=== PATIENT | male | born 1985 | race Two or more races ===

== ENCOUNTER 2021-11-07 20:27 | Emergency (ER) | payer MEDICAID ==
[~2021-11-07] VITALS: Ht 170.2 cm; Wt 76.2 kg
[2021-11-07 20:29] VITALS: BP 155/93
== END 2021-11-07 22:48 | disposition left against medical advice (07) ==
LOC: ER 20:27
DX: S61.216A Laceration without foreign body of right little finger without damage to nail, initial encounter (principal); Z53.21 Procedure and treatment not carried out due to patient leaving prior to being seen by health care provider; W25.XXXA Contact with sharp glass, initial encounter; Y93.89 Activity, other specified; Y92.89 Other specified places as the place of occurrence of the external cause; Y99.8 Other external cause status